=== PATIENT | male | born 2000 | race African-American/Black ===

== ENCOUNTER 2022-12-22 02:33 | Emergency (ER) | payer OTHER ==
[~2022-12-22] VITALS: Ht 180.3 cm; Wt 86.0 kg
[2022-12-22 02:41] VITALS: BP 148/89
[2022-12-22 03:56] LABS: CLARITY URINE CLOUDY (CLEAR); COLOR URINE ORANGE (YELLOW); KETONES URINE TRACE (NEGATIVE); LEUKOCYTE ESTERASE URINE TRACE (NEGATIVE); NITRITE URINE NEGATIVE (NEGATIVE); OCCULT BLOOD URINE 3+ (NEGATIVE); PH URINE 5.5 (4.5-8.0); PROTEIN URINE 1+ (NEGATIVE); SPECIFIC GRAVITY URINE 1.034 (1.005-1.030)
[2022-12-22] MEDS ORDERED: BO1 TP (04:07)
== END 2022-12-22 04:20 | disposition home or self-care (01) ==
LOC: ER 02:33
DX: N50.89 Other specified disorders of the male genital organs (principal); Z88.0 Allergy status to penicillin
CPT/HCPCS: 81003; 99283